=== PATIENT | male | born 1960 | race Hispanic/Latino ===

== ENCOUNTER 2022-02-15 05:35 | Observation (INO) | payer OTHER ==
[2022-02-03 11:38] LABS: BASOPHILS % (AUTO) 0.5 % (0.0-5.0); EOSINOPHILS % (AUTO) 1.8 % (0.0-8.0); HEMATOCRIT 42.5 % (42-54); LYMPHOCYTES % (AUTO) 22.7 % (21.0-51.0); MEAN CORPUSCULAR HEMOGLOBIN 31.6 pg (27.0-33.0); MEAN CORPUSCULAR HGB CONC 33.6 g/dL (32.0-36.0); MEAN CORPUSCULAR VOLUME 93.8 fL (79-99); MONOCYTES % (AUTO) 8.3 % (3.0-13.0); NEUTROPHILS % (AUTO) 66.3 % (40.0-77.0); PLATELET COUNT (AUTO) 316 K/uL (130-400); RED BLOOD CELL COUNT(AUTO) 4.53 MIL/uL (4.50-6.20); RED CELL DISTRIBUTION WIDTH 11.8 % (11.0-15.5); WHITE BLOOD COUNT (AUTO) 11.2 K/uL (4.8-10.8)
[2022-02-03 11:46] LABS: POTASSIUM 3.9 mmol/L (3.5-5.1)
[2022-02-03 11:56] LABS: INR 0.93 (0.85-1.15)
[2022-02-03 11:57] LABS: PARTIAL THROMBOPLASTIN TIME 27.1 SEC (26.3-35.5)
[2022-02-07 09:51] VITALS: BP_SYST 120; BP_SYST 185; BP_DIAS 79; BP_DIAS 90
[2022-02-15] VITALS (34 sets, daily range): BP systolic 98–133; BP diastolic 42–80
[~2022-02-15] VITALS: Ht 162.6 cm; Wt 102.9 kg
[2022-02-15] MEDS: CEFAZOLIN SODIUM 2 GM VIAL IV SCH ×2 (05:00→09:58)
[~2022-02-15 05:35] MED LIST: ATOR20TA65 PO; CHLO25TA3 PO; LISI40TA9 PO; METF-444 PO; ROPIVICAINE 250MG+KETOROLAC 15MG+EPINEPHRINE 0.3+CLONIDINE 80 IV PRN
[2022-02-15] MEDS ORDERED: 0.9%NACL 1000ML 1,000 ML IV ONE (06:33)
[2022-02-15] MEDS ORDERED: CEFAZOLIN SODIUM 1 GM VIAL ONE (06:33)
[2022-02-15] MEDS ORDERED: TRANEXAMIC ACID 1000MG/10ML ONE (07:03)
[2022-02-15] MEDS ORDERED: ONDANSETRON 4MG INJ IVP PRN (08:00)
[2022-02-15] MEDS: 0.9%NACL 1000ML 1,000 ML IV SCH ×2 (08:00→18:00)
[2022-02-15] MEDS ORDERED: FERROUS FUMARATE 324 MG TABLET PO PRN (08:00)
[2022-02-15] MEDS ORDERED: MORPHINE 4 MG SYG IVP PRN (08:00)
[2022-02-15] MEDS ORDERED: HYDROCODONE/ACETAMINOPHEN 5/325 MG TAB PO PRN (08:00)
[2022-02-15] MEDS: ACETAMINOPHEN 500 MG TABLET PO SCH ×3 (08:00→23:29)
[2022-02-15] MEDS: ASPIRIN 81 MG EC TAB PO SCH ×2 (09:00→19:47)
[2022-02-15] MEDS: **HM** CHLORTHALIDONE 25MG PO SCH (09:00)
[2022-02-15] MEDS: METFORMIN HCL 500 MG TABLET PO SCH (09:00)
[2022-02-15] MEDS: LISINOPRIL 40 MG TABLET PO SCH (09:00)
[2022-02-15] MEDS: POLYETHYLENE GLYCOL 3350 17 GM POWD.PACK PO SCH (09:00)
[2022-02-15] MEDS: FAMOTIDINE 20MG TAB PO SCH ×2 (09:00→19:47)
[2022-02-15] MEDS ORDERED: LIDOCAINE PF 100MG/5ML (2%) SYRINGE 5ML ONE (09:18)
[2022-02-15] MEDS ORDERED: SUCCINYLCHOLINE 200MG/10ML SYR ONE (09:18)
[2022-02-15] MEDS ORDERED: PROPOFOL 10 MG/ML 20ML VIAL IV ONE ×2 (09:19→09:37)
[2022-02-15] MEDS ORDERED: ROCURONIUM 10MG/1ML SYR 10 MG/ML ML ONE ×2 (09:19→10:13)
[2022-02-15] MEDS ORDERED: FENTANYL CITRATE PF 50 MCG/1 ML 2ML VIAL ONE (09:19)
[2022-02-15] MEDS ORDERED: MIDAZOLAM HCL 1 MG/ML 2ML VIAL ONE (09:21)
[2022-02-15] MEDS ORDERED: ROPIVACAINE 0.5% 5MG/ML 30ML IJ ONE (09:21)
[2022-02-15] MEDS ORDERED: PROPOFOL 1000 MG/100 ML 100 ML IV ONE ×2 (09:21→10:45)
[2022-02-15] MEDS ORDERED: SUGAMMADEX SODIUM 200 MG/2 ML VIAL IV ONE (11:26)
[2022-02-15] MEDS: INSULIN HUMULIN R 100 UNIT/ML 3ML SQ SCH ×3 (11:30→20:10)
[2022-02-15] MEDS ORDERED: PHENYLEPHRINE HCL 10 MG/ML 1ML VIAL IV ONE (11:59)
[2022-02-15] MEDS: TRAMADOL HCL 50 MG TABLET PO SCH ×3 (12:00→23:29)
[2022-02-15] MEDS ORDERED: KETOROLAC 30MG VIAL (30MG/ML) ONE (12:26)
[2022-02-15] MEDS ORDERED: MEPERIDINE-PF 25 MG/ML SYG ONE (12:27)
[2022-02-15] MEDS: CEFAZOLIN SODIUM 1 GM VIAL IVP SCH ×2 (17:13→19:48)
[2022-02-15] MEDS: HYDROCODONE/ACETAMINOPHEN 10/325 MG TAB PO PRN (19:47)
[2022-02-16] VITALS (7 sets, daily range): BP systolic 118–138; BP diastolic 66–78
[2022-02-16] MEDS: CEFAZOLIN SODIUM 2 GM VIAL IV SCH (02:41)
[2022-02-16] MEDS: 0.9%NACL 1000ML 1,000 ML IV SCH (04:00)
[2022-02-16 04:22] LABS: HEMATOCRIT 37.9 % (42-54); MEAN CORPUSCULAR HEMOGLOBIN 30.9 pg (27.0-33.0); MEAN CORPUSCULAR VOLUME 93.8 fL (79-99); RED BLOOD CELL COUNT(AUTO) 4.04 MIL/uL (4.50-6.20); RED CELL DISTRIBUTION WIDTH 11.9 % (11.0-15.5); WHITE BLOOD COUNT (AUTO) 13.1 K/uL (4.8-10.8)
[2022-02-16 04:34] LABS: CREATININE 1.1 mg/dL (0.5-1.5); POTASSIUM 3.8 mmol/L (3.5-5.1)
[2022-02-16] MEDS: TRAMADOL HCL 50 MG TABLET PO SCH ×4 (05:08→23:34)
[2022-02-16] MEDS: INSULIN HUMULIN R 100 UNIT/ML 3ML SQ SCH ×4 (05:16→20:46)
[2022-02-16] MEDS: **HM** CHLORTHALIDONE 25MG PO SCH (08:22)
[2022-02-16] MEDS: FAMOTIDINE 20MG TAB PO SCH ×2 (08:34→20:45)
[2022-02-16] MEDS: METFORMIN HCL 500 MG TABLET PO SCH (08:34)
[2022-02-16] MEDS: POLYETHYLENE GLYCOL 3350 17 GM POWD.PACK PO SCH (08:34)
[2022-02-16] MEDS: ASPIRIN 81 MG EC TAB PO SCH ×2 (08:34→20:45)
[2022-02-16] MEDS: LISINOPRIL 40 MG TABLET PO SCH (08:35)
[2022-02-16] MEDS: KETOROLAC 15MG/ML VIAL (15MG/ML) IV PRN (08:35)
[2022-02-16] MEDS: HYDROCODONE/ACETAMINOPHEN 10/325 MG TAB PO PRN (08:35)
[2022-02-16] MEDS: ACETAMINOPHEN 500 MG TABLET PO SCH ×2 (15:32→20:45)
[2022-02-17 04:00] VITALS: BP 132/74
[2022-02-17] MEDS: CEFAZOLIN SODIUM 2 GM VIAL IV SCH (05:00)
[2022-02-17] MEDS: INSULIN HUMULIN R 100 UNIT/ML 3ML SQ SCH ×2 (06:02→11:09)
[2022-02-17] MEDS: ACETAMINOPHEN 500 MG TABLET PO SCH (06:02)
[2022-02-17] MEDS: TRAMADOL HCL 50 MG TABLET PO SCH ×2 (06:02→11:54)
[2022-02-17 07:15] VITALS: BP 117/67
[2022-02-17] MEDS: LISINOPRIL 40 MG TABLET PO SCH (08:47)
[2022-02-17] MEDS: POLYETHYLENE GLYCOL 3350 17 GM POWD.PACK PO SCH (08:47)
[2022-02-17] MEDS: METFORMIN HCL 500 MG TABLET PO SCH (08:47)
[2022-02-17] MEDS: FAMOTIDINE 20MG TAB PO SCH (08:47)
[2022-02-17] MEDS: ASPIRIN 81 MG EC TAB PO SCH (08:47)
[2022-02-17] MEDS: **HM** CHLORTHALIDONE 25MG PO SCH (08:53)
[2022-02-17] MEDS: KETOROLAC 15MG/ML VIAL (15MG/ML) IV PRN (09:51)
[2022-02-17 11:00] VITALS: BP 120/64
[2022-02-18] MEDS ORDERED: BISACODYL 10 MG SUPP.RECT RC PRN (08:00)
== END 2022-02-17 14:30 | disposition home or self-care (01) ==
LOC: DAH 05:35 → DAHIP 05:36 → DAH 05:36 → 4DH 13:30
PROVIDERS: ADMIT Orthopaedic Surgery; ATTEND Orthopaedic Surgery
DX: M17.11 Unilateral primary osteoarthritis, right knee (principal); Z20.822 Contact with and (suspected) exposure to COVID-19; M21.061 Valgus deformity, not elsewhere classified, right knee; I95.9 Hypotension, unspecified; I10 Essential (primary) hypertension; E66.9 Obesity, unspecified; K21.9 Gastro-esophageal reflux disease without esophagitis; Z79.899 Other long term (current) drug therapy
CPT/HCPCS: 0055T; 27447; 36415; 64447; 76942; 80048; 82948; 85025; 85027; 85610; 85730; 87635; 87641; 93005; 96374; 96375; 96376; 97039; C9803; G0378; J0171; J0330; J0690; J0735; J1885; J2001; J2175; J2250; J2270; J2370; J2405; J2704; J2795; J3010; J3490; J7030

== ENCOUNTER 2022-12-13 06:43 | Observation (INO) | payer OTHER ==
[2022-12-09 13:51] LABS: BASOPHILS % (AUTO) 0.4 % (0.0-5.0); EOSINOPHILS % (AUTO) 2.7 % (0.0-8.0); HEMATOCRIT 41.3 % (42-54); LYMPHOCYTES % (AUTO) 21.8 % (21.0-51.0); MEAN CORPUSCULAR HEMOGLOBIN 31.4 pg (27.0-33.0); MEAN CORPUSCULAR HGB CONC 33.9 g/dL (32.0-36.0); MEAN CORPUSCULAR VOLUME 92.6 fL (79-99); MONOCYTES % (AUTO) 8.1 % (3.0-13.0); NEUTROPHILS % (AUTO) 66.4 % (40.0-77.0); PLATELET COUNT (AUTO) 295 K/uL (130-400); RED BLOOD CELL COUNT(AUTO) 4.46 MIL/uL (4.50-6.20); RED CELL DISTRIBUTION WIDTH 12.2 % (11.0-15.5)
[2022-12-09 14:00] LABS: CREATININE 0.9 mg/dL (0.5-1.5); POTASSIUM 3.7 mmol/L (3.5-5.1)
[2022-12-09 14:03] LABS: INR 0.93 (0.85-1.15)
[2022-12-09 14:05] LABS: PARTIAL THROMBOPLASTIN TIME 28.2 SEC (26.3-35.5)
[2022-12-09 14:24] VITALS: BP 159/76
[2022-12-13] VITALS (41 sets, daily range): BP systolic 87–165; BP diastolic 46–85
[~2022-12-13] VITALS: Ht 162.6 cm; Wt 111.3 kg
[~2022-12-13 06:43] MED LIST changes: +CEFAZOLIN SODIUM 1 GM VIAL IVPB SCH; +MELO-106 PO; +VITAMIN D PO
[2022-12-13] MEDS ORDERED: 0.9%NACL 1000ML 1,000 ML IV ONE (07:10)
[2022-12-13] MEDS ORDERED: HYDROCODONE/ACETAMINOPHEN 10/325 MG TAB PO PRN (07:30)
[2022-12-13] MEDS ORDERED: HYDROCODONE/ACETAMINOPHEN 5/325 MG TAB PO PRN (07:30)
[2022-12-13] MEDS ORDERED: LIDOCAINE HCL-MPF 1% 2ML VIAL IV PRN (07:30)
[2022-12-13] MEDS ORDERED: KCL 20 MEQ ERTAB PO PRN (07:30)
[2022-12-13] MEDS ORDERED: POTASSIUM CHLORIDE 10% ELIXIR 20 MEQ/15 ML UDCUP PO PRN (07:30)
[2022-12-13] MEDS ORDERED: ONDANSETRON 4MG INJ IVP PRN (07:30)
[2022-12-13] MEDS ORDERED: POTASSIUM CHLORIDE 20MEQ/100ML 100 ML IV PRN (07:30)
[2022-12-13] MEDS: 0.9%NACL 1000ML 1,000 ML IV SCH ×2 (07:30→18:11)
[2022-12-13] MEDS: INSULIN HUMULIN R 100 UNIT/ML 3ML SQ SCH ×4 (07:30→21:52)
[2022-12-13] MEDS ORDERED: TRANEXAMIC ACID 1000MG/10ML ONE (08:17)
[2022-12-13] MEDS: HYDROCHLOROTHIAZIDE 25 MG TABLET PO SCH (09:00)
[2022-12-13] MEDS: POLYETHYLENE GLYCOL 3350 17 GM POWD.PACK PO SCH (09:00)
[2022-12-13] MEDS: LISINOPRIL 40 MG TABLET PO SCH (09:00)
[2022-12-13] MEDS: FAMOTIDINE 20MG TAB PO SCH ×2 (09:00→19:51)
[2022-12-13] MEDS: METFORMIN HCL 500 MG TABLET PO SCH (09:00)
[2022-12-13] MEDS ORDERED: ONDANSETRON 4MG INJ ONE (09:58)
[2022-12-13] MEDS ORDERED: EPHEDRINE SULFATE 50 MG/ML AMPULE ONE (09:58)
[2022-12-13] MEDS ORDERED: DEXAMETHASONE SOD PHOSPHATE 10MG/ML 1ML VIAL ONE (09:58)
[2022-12-13] MEDS ORDERED: LIDOCAINE PF 100MG/5ML (2%) SYRINGE 5ML ONE (09:58)
[2022-12-13] MEDS ORDERED: FENTANYL CITRATE PF 50 MCG/1 ML 2ML VIAL ONE ×4 (09:59→13:42)
[2022-12-13] MEDS ORDERED: PROPOFOL 10 MG/ML 20ML VIAL IV ONE (09:59)
[2022-12-13] MEDS ORDERED: ROCURONIUM 10MG/1ML SYR 10 MG/ML ML ONE ×2 (09:59→11:00)
[2022-12-13] MEDS ORDERED: MIDAZOLAM HCL 1 MG/ML 2ML VIAL ONE (09:59)
[2022-12-13] MEDS ORDERED: TRANEXAMIC ACID 1000MG/10ML IV ONE (10:15)
[2022-12-13] MEDS ORDERED: IBUPROFEN 800MG + NS 250ML IV SCH (10:30)
[2022-12-13] MEDS ORDERED: VASOPRESSIN 20 UNITS/ML 1ML VIAL ONE (10:44)
[2022-12-13] MEDS ORDERED: PHENYLEPHRINE HCL 10 MG/ML 1ML VIAL IV ONE (10:44)
[2022-12-13] MEDS ORDERED: ROPIVACAINE 0.2% 2MG/ML 100ML VIAL IJ ONE (10:56)
[2022-12-13] MEDS ORDERED: KETOROLAC 15MG/ML VIAL (15MG/ML) IARTIC ONE (10:56)
[2022-12-13] MEDS ORDERED: CLONIDINE HCL 1000 MCG/10 ML IARTIC ONE (10:56)
[2022-12-13] MEDS ORDERED: EPINEPHRINE PF 1MG (1:1,000) 1 MG/ML AMP MISC ONE (10:56)
[2022-12-13] MEDS ORDERED: GLYCOPYRROLATE 1 MG/5 ML SYRINGE ONE (11:48)
[2022-12-13] MEDS ORDERED: NEOSTIGMINE 5MG/5ML SYR IV ONE (11:48)
[2022-12-13] MEDS ORDERED: ROPIVACAINE 0.5% 5MG/ML 30ML IJ ONE (11:50)
[2022-12-13] MEDS: TRAMADOL HCL 50 MG TABLET PO SCH ×3 (12:00→23:21)
[2022-12-13] MEDS: CEFAZOLIN SODIUM 1 GM VIAL IVP SCH ×2 (12:30→19:51)
[2022-12-13] MEDS ORDERED: MORPHINE 2 MG SYG ONE ×2 (13:00→13:04)
[2022-12-13] MEDS: ACETAMINOPHEN 1,000 MG/100 ML VIAL IV SCH ×3 (13:23→19:09)
[2022-12-13] MEDS: IBUPROFEN 800MG + NS 250ML IV SCH ×3 (14:07→23:20)
[2022-12-14] VITALS: BP 112/69
[2022-12-14] MEDS: 0.9%NACL 1000ML 1,000 ML IV SCH (02:33)
[2022-12-14 04:00] VITALS: BP 101/55
[2022-12-14] MEDS: TRAMADOL HCL 50 MG TABLET PO SCH ×3 (04:54→17:09)
[2022-12-14 05:19] LABS: HEMATOCRIT 34.9 % (42-54); MEAN CORPUSCULAR HEMOGLOBIN 31.7 pg (27.0-33.0); MEAN CORPUSCULAR HGB CONC 32.7 g/dL (32.0-36.0); MEAN CORPUSCULAR VOLUME 96.9 fL (79-99); RED BLOOD CELL COUNT(AUTO) 3.6 MIL/uL (4.50-6.20); RED CELL DISTRIBUTION WIDTH 12.2 % (11.0-15.5); WHITE BLOOD COUNT (AUTO) 18.3 K/uL (4.8-10.8)
[2022-12-14] MEDS: INSULIN HUMULIN R 100 UNIT/ML 3ML SQ SCH ×4 (05:42→20:56)
[2022-12-14 08:01] VITALS: BP 111/67
[2022-12-14] MEDS: HYDROCHLOROTHIAZIDE 25 MG TABLET PO SCH (09:08)
[2022-12-14] MEDS: FAMOTIDINE 20MG TAB PO SCH ×2 (09:08→20:57)
[2022-12-14] MEDS: POLYETHYLENE GLYCOL 3350 17 GM POWD.PACK PO SCH (09:08)
[2022-12-14] MEDS: METFORMIN HCL 500 MG TABLET PO SCH (09:08)
[2022-12-14] MEDS: ASPIRIN 81 MG EC TAB PO SCH ×2 (09:08→20:57)
[2022-12-14] MEDS: LISINOPRIL 40 MG TABLET PO SCH (09:09)
[2022-12-14 11:31] VITALS: BP 134/77
[2022-12-14] MEDS: MORPHINE 4 MG SYG IVP PRN (13:43)
[2022-12-14 16:00] VITALS: BP 122/65
[2022-12-14 20:01] VITALS: BP 141/75
[2022-12-15 00:08] VITALS: BP 132/73
[2022-12-15] MEDS: TRAMADOL HCL 50 MG TABLET PO SCH ×2 (00:19→05:30)
[2022-12-15] MEDS: MORPHINE 4 MG SYG IVP PRN (04:15)
[2022-12-15 04:30] VITALS: BP 135/74
[2022-12-15] MEDS: INSULIN HUMULIN R 100 UNIT/ML 3ML SQ SCH (05:54)
[2022-12-15 08:23] VITALS: BP 156/73
[2022-12-15] MEDS: METFORMIN HCL 500 MG TABLET PO SCH (08:40)
[2022-12-15] MEDS: LISINOPRIL 40 MG TABLET PO SCH (08:40)
[2022-12-15] MEDS: POLYETHYLENE GLYCOL 3350 17 GM POWD.PACK PO SCH (08:40)
[2022-12-15] MEDS: FAMOTIDINE 20MG TAB PO SCH (08:41)
[2022-12-15] MEDS: HYDROCHLOROTHIAZIDE 25 MG TABLET PO SCH (08:41)
[2022-12-15] MEDS: ASPIRIN 81 MG EC TAB PO SCH (08:41)
[2022-12-16] MEDS ORDERED: BISACODYL 10 MG SUPP.RECT RC PRN (07:30)
== END 2022-12-15 10:00 | disposition home or self-care (01) ==
LOC: DAH 06:43 → DAHIP 06:44 → 4DH 17:17
PROVIDERS: ADMIT Orthopaedic Surgery; ATTEND Orthopaedic Surgery
DX: M17.12 Unilateral primary osteoarthritis, left knee (principal); Z20.822 Contact with and (suspected) exposure to COVID-19; Z96.651 Presence of right artificial knee joint; Z79.899 Other long term (current) drug therapy; Z98.890 Other specified postprocedural states
CPT/HCPCS: 80048 ×2; 85025; 85610; 85730; 87426; 36415 ×2; 87641; 20985; 27447; 96372; 96365; 96375 ×2; 96367; 64447; 82948 ×9; 96366; 85027; 97161; 97039 ×3; 97116 ×3; 97530 ×3; 96376; A6260; C1776 ×4; G0378 ×43; A4663; J7030 ×3; J3010 ×4; J0690 ×2; J3490 ×5; J1100; J2710; J2001; J0171; J2250; J2704; J2405; J2795 ×2; J1885; J2370; J1741 ×2; J0735; J1815; A6223; G0168; A4649 ×3; A6212; A5120; A4215; A4223; A4222; A4221; J2270 ×2